=== PATIENT | male | born 1965 | race Caucasian/White ===

== ENCOUNTER 2016-06-23 10:24 | Emergency (ER) | payer OTHER ==
[2016-06-23] MEDS ORDERED: NS 0.9% 1000 ML* 3,000 ML IV ONE (10:43)
[2016-06-23] MEDS ORDERED: Aspirin Low Dose CHEW TAB* 81 MG PO ONE (10:43)
[2016-06-23 11:03] LABS: Hematocrit 44 % (42-52); Hemoglobin 14.5 g/dl (14.0-18.0); Mean Corpuscular HGB Conc 33 g/dl (31-36); Mean Corpuscular Hemoglobin 34 pg (27-31); Mean Corpuscular Volume 100 fL (80-94); Mean Platelet Volume 8 um3 (7.4-10.4); Red Blood Count 4.33 10^6/ul (4.0-5.4); Red Cell Distribution Width 14 % (10.5-15); White Blood Count 9.8 10^3/ul (3.5-10.8)
[2016-06-23 11:19] LABS: Albumin 4.1 g/dL (3.2-5.2); BUN/Creatinine Ratio 17.8 (8-20); Calcium 8.9 mg/dL (8.6-10.3); EGFR African American 114.4 (>60); Globulin 2.7 g/dL (2-4); Magnesium 1.9 mg/dL (1.9-2.7); Potassium 4.3 mmol/L (3.5-5.0); Total Bilirubin 0.4 mg/dL (0.2-1.0); Total Protein 6.8 g/dL (6.4-8.9)
[2016-06-23] MEDS ORDERED: Ondansetron INJ* 2 MG/ML VIAL IV ONE (12:06)
[2016-06-23] MEDS ORDERED: Morphine INJ* 4 MG/ML 1 ML CARPUJECT IV ONE (12:06)
[2016-06-23] MEDS ORDERED: Iohexol 300* (CONTRAST) 10 ML SDV IV ONE (12:23)
--- NOTE | 2016-06-23 13:13 | RAD ---
Indication: Left-sided chest pain after chest injury. Abdominal pain. IV contrast: Administered 100.0 ml of OMNIPAQUE 300 mgi/ml CT of the chest, abdomen and pelvis was performed after oral and IV contrast administration. Coronal and sagittal reconstructed images were obtained. Inferior thyroid lobes are unremarkable. There is no mediastinal or hilar adenopathy. Heart is of normal size without evidence of pericardial effusion. The trachea and major bronchi appear patent. The lung castro demonstrate no evidence of alveolar consolidation. No pleural fluid is identified. No pneumothorax is noted. CT of the abdomen and pelvis demonstrates liver to be normal in size. Tiny low density lesion is noted in the right lobe measuring 3 to 4 mm. This likely represents a small cyst or hemangioma. The gallbladder demonstrates no calcific gallstones. No pericholecystic fluid or wall thickening is noted. The spleen is normal in size. No adrenal masses are noted. The pancreas demonstrates no mass or pancreatic ductal dilatation. The common duct is not dilated. CT of the pelvis demonstrates no retroperitoneal or pelvic lymphadenopathy. The urinary bladder is unremarkable. No hernias are noted. The colon is filled with stool. The appendix is visualized and is unremarkable. IMPRESSION: NO EVIDENCE OF ABNORMAL MASSES OR FLUID COLLECTIONS ARE NOTED. NO PNEUMOTHORAX IS NOTED. NO EVIDENCE OF SPLENIC INJURY IS NOTED. NO RIB FRACTURES ARE NOTED.
[2016-06-23 14:08] VITALS: BP 117/62
--- NOTE | 2016-06-23 14:57 | ED ---
Eder Gudino Adam, scribed for Mikel Kong MD on 06/23/16 at 1048 . HPI Chest Pain - HPI Summary HPI Summary: Pt is a 51 year old male presenting with pain in his left ribs. He states that he heard a popping sound when the pain set on suddenly while the pt was at work between 09:30 and 09:45. He states that he was unable to continue working because of the pain. It is alleviated by standing up and it is aggravated by sitting down and taking deep breaths. Lying down is tolerable. Pt also c/o diaphoresis and near syncope, stating that he felt like he was going to faint earlier. He denies SOB. Positive tobacco Hx. PMHx of tendonitis in the foot. - History of Current Complaint Chief Complaint: EDChestPainROMI Time Seen by Provider: 06/23/16 10:37 Hx Obtained From: Patient Onset/Duration: Started Hours Ago, Atraumatic, Still Present Timing: Constant, Lasting Hours Initial Severity: Moderate Current Severity: Moderate Chest Pain Location: Left Anterior Aggravating Factor(s): Position - Sitting down, Deep Breaths Alleviating Factor(s): Position - Standing up Associated Signs and Symptoms: Positive: Diaphoresis, Other: - Near syncope - Allergy/Home Medications Allergies/Adverse Reactions: Allergies Allergy/AdvReac Type Severity Reaction Status Date / Time No Known Allergies Allergy Verified 06/23/16 11:22 PMH/Surg Hx/FS Hx/Imm Hx Infectious Disease History: Denies: Traveled Outside the [place] in Last 30 Days - Family History Known Family History: Positive: Unknown - Per pt - Social History Occupation: Employed Full-time Lives: With Family - Hx Tobacco Use: Yes Review of Systems Positive: Skin Diaphoresis Negative: Shortness Of Breath Positive: Myalgia - Left ribs Positive: Syncope - Near (No LOC) All Other Systems Reviewed And Are Negative: Yes Physical Exam - Summary Physical Exam Summary: The patient is well-nourished in no acute distress and in no acute pain. The skin is pale and diaphoretic. HEENT: The head is normocephalic and atraumatic. The pupils are equal and reactive. The conjunctivae are clear and without drainage. The external ears are intact. Neck is supple with full range of motion and non-tender. There are no carotid bruits. There is no neck vein distension. Respiratory: Chest is non-tender. Lungs are clear to auscultation and breath sounds are symmetrical and equal. Cardiovascular: Heart is regular rate and rhythm. There is no murmur or rub auscultated. There is no peripheral edema and pulses are symmetrical and equal. Abdomen: The abdomen is soft and non-tender. There are normal bowel sounds heard in all four quadrants and there is no organomegaly palpated. Musculoskeletal: There is no back pain noted. Extremities are non-tender with full range of motion. There is good capillary refill. There is no peripheral edema or calf tenderness elicited. Neurological: Patient is alert and oriented to person, place and time. The patient has symmetrical motor strength in all four extremities. Cranial nerves are grossly intact. Deep tendon reflexes are symmetrical and equal in all four extremities. Psychiatric: The patient has an appropriate affect and does not exhibit any anxiety or depression. Triage Information Reviewed: Yes Vital Signs On Initial Exam: Initial Vitals Temp Pulse Resp BP Pulse Ox 97.2 F 50 16 54/38 99 06/23/16 10:35 06/23/16 10:35 06/23/16 10:35 06/23/16 10:35 06/23/16 10:35 Vital Signs Reviewed: Yes Diagnostics - Vital Signs Vital Signs Temp Pulse Resp BP Pulse Ox 06/23/16 10:35 97.2 F 50 16 54/38 99 - Laboratory Lab Results: Lab Results 06/23/16 06/23/16 06/23/16 Range/Units 10:50 10:50 10:50 WBC 9.8 (3.5-10.8) 10^3/ul RBC 4.33 (4.0-5.4) 10^6/ul Hgb 14.5 (14.0-18.0) g/dl Hct 44 (42-52) % MCV 100 H (80-94) fL MCH 34 H (27-31) pg MCHC 33 (31-36) g/dl RDW 14 (10.5-15) % Plt Count 275 (150-450) 10^3/ul MPV 8 (7.4-10.4) um3 Neut % (Auto) 62.5 (38-83) % Lymph % (Auto) 31.2 (25-47) % [place] % (Auto) 4.4 (1-9) % Eos % (Auto) 1.2 (0-6) % Baso % (Auto) 0.7 (0-2) % Absolute Neuts (auto) 6.2 (1.5-7.7) 10^3/ul Absolute Lymphs (auto) 3.1 (1.0-4.8) 10^3/ul Absolute Monos (auto) 0.4 (0-0.8) 10^3/ul Absolute Eos (auto) 0.1 (0-0.6) 10^3/ul Absolute Basos (auto) 0.1 (0-0.2) 10^3/ul Absolute Nucleated RBC 0 10^3/ul Nucleated RBC % 0 INR (Anticoag Therapy) (0.89-1.11) Sodium 138 (133-145) mmol/L Potassium 4.3 (3.5-5.0) mmol/L Chloride 109 (101-111) mmol/L Carbon Dioxide 25 (22-32) mmol/L Anion Gap 4 (2-11) mmol/L BUN 16 (6-24) mg/dL Creatinine 0.90 (0.67-1.17) mg/dL Est GFR ( Amer) 114.4 (>60) Est GFR (Non-Af Amer) 89.0 (>60) BUN/Creatinine Ratio 17.8 (8-20) Glucose 119 H (70-100) mg/dL Lactic Acid 1.0 (0.5-2.0) mmol/L Calcium 8.9 (8.6-10.3) mg/dL Magnesium 1.9 (1.9-2.7) mg/dL Total Bilirubin 0.40 (0.2-1.0) mg/dL AST 17 (13-39) U/L ALT 20 (7-52) U/L Alkaline Phosphatase 59 (34-104) U/L CK-MB (CK-2) 3.2 (0.6-6.3) ng/mL Troponin I 0.00 (<0.04) ng/mL Total Protein 6.8 (6.4-8.9) g/dL Albumin 4.1 (3.2-5.2) g/dL Globulin 2.7 (2-4) g/dL Albumin/Globulin Ratio 1.5 (1-3) 06/23/16 Range/Units 10:50 WBC (3.5-10.8) 10^3/ul RBC (4.0-5.4) 10^6/ul Hgb (14.0-18.0) g/dl Hct (42-52) % MCV (80-94) fL MCH (27-31) pg MCHC (31-36) g/dl RDW (10.5-15) % Plt Count (150-450) 10^3/ul MPV (7.4-10.4) um3 Neut % (Auto) (38-83) % Lymph % (Auto) (25-47) % [place] % (Auto) (1-9) % Eos % (Auto) (0-6) % Baso % (Auto) (0-2) % Absolute Neuts (auto) (1.5-7.7) 10^3/ul Absolute Lymphs (auto) (1.0-4.8) 10^3/ul Absolute Monos (auto) (0-0.8) 10^3/ul Absolute Eos (auto) (0-0.6) 10^3/ul Absolute Basos (auto) (0-0.2) 10^3/ul Absolute Nucleated RBC 10^3/ul Nucleated RBC % INR (Anticoag Therapy) 0.90 (0.89-1.11) Sodium (133-145) mmol/L Potassium (3.5-5.0) mmol/L Chloride (101-111) mmol/L Carbon Dioxide (22-32) mmol/L Anion Gap (2-11) mmol/L BUN (6-24) mg/dL Creatinine (0.67-1.17) mg/dL Est GFR ( Amer) (>60) Est GFR (Non-Af Amer) (>60) BUN/Creatinine Ratio (8-20) Glucose (70-100) mg/dL Lactic Acid (0.5-2.0) mmol/L Calcium (8.6-10.3) mg/dL Magnesium (1.9-2.7) mg/dL Total Bilirubin (0.2-1.0) mg/dL AST (13-39) U/L ALT (7-52) U/L Alkaline Phosphatase (34-104) U/L CK-MB (CK-2) (0.6-6.3) ng/mL Troponin I (<0.04) ng/mL Total Protein (6.4-8.9) g/dL Albumin (3.2-5.2) g/dL Globulin (2-4) g/dL Albumin/Globulin Ratio (1-3) Result Diagrams: 06/23/16 10:50 06/23/16 10:50 Lab Statement: Any lab studies that have been ordered have been reviewed, and results considered in the medical decision making process. - CT CHEST/ABDOMEN/PELVIS CT Interpretation Completed By: Radiologist - IMPRESSION: NO EVIDENCE OF ABNORMAL MASSES OR FLUID COLLECTIONS ARE NOTED. NO PNEUMOTHORAX IS NOTED. NO EVIDENCE OF SPLENIC INJURY IS NOTED. NO RIB FRACTURES ARE NOTED. - EKG 10:33 Cardiac Rate: Bradycardia - 57 BPM EKG Rhythm: Sinus Bradycardia EKG Interpretation: Normal axis. No ST changes. - Additional Comments Diagnostic Additional Comments: Troponin I - 0.00 Chest Pain Course/Dx - Course Course Of Treatment: 12:29 - No pneumothorax seen in the chest X-ray. CT of the chest and abdomen will be done and patient will be discharged with pain medication if the CT is negative. - Chest Pain Differential Diagnosis/HQI/PQRI: Other: - pnemothorax, rib fracture, chest trauma, abdominal trauma - Diagnoses Provider Diagnoses: Intercostal myalgia, CHEST WALL PAIN Discharge - Discharge Plan Condition: Stable Disposition: HOME Prescriptions: oxyCODONE/Acetamin 5/325 MG* [Percocet 5/325 TAB*] 1 tab PO Q6H PRN #24 tab MDD 4 PRN Reason: pain Patient Education Materials: Chest Wall Pain (ED) Forms: *Work Release Referrals: [facility] [Provider Group] Additional Instructions: Follow up with Primary Care Physician at [facility]. The documentation as recorded by the Eder contreras Adam accurately reflects the service I personally performed and the decisions made by , Mikel Kong MD.
--- NOTE | 2016-06-23 16:41 | RAD ---
Indication: Left-sided chest pain. Single frontal view of the chest performed at 1113 hours was reviewed. No prior study is available for comparison. No mediastinal shift is noted. Heart is of normal size and configuration. Lung castro appear clear. IMPRESSION: NO ACTIVE CARDIOPULMONARY DISEASE IS NOTED.
== END 2016-06-23 14:21 | disposition home or self-care (01) ==
LOC: ED 10:24
DX: R07.81 Pleurodynia (principal); R55 Syncope and collapse; M79.1 Myalgia
CPT/HCPCS: 36415; 71010; 71260; 74177; 80053; 82553; 83605; 83735; 84484; 85025; 85610; 93005; 96374; 96375; 99283; A9270-GY; J2270; J2405; Q9967